=== PATIENT | female | born 1950 | race Caucasian/White ===

== ENCOUNTER 2018-03-09 18:38 | Emergency (ER) | payer MEDICARE, MEDICAID ==
[2018-03-09 18:49] VITALS: BMI 30.2
[2018-03-09 19:00] VITALS: RESP 18; TEMP 98
[2018-03-09] MEDS ORDERED: Sodium Chloride 0.9% 1,000 ML IV STA (19:47)
[2018-03-09 20:57] LABS: BASO # 0.03 K/mm3 (0.0-2.0); BASO % 0.4 % (0.0-3.0); EOS # 0.1 (0.0-0.7); EOS % 1.3 % (1.5-5.0); GRAN # 4.2 (1.4-6.5); GRAN % 62.9 % (50.0-68.0); HEMOGLOBIN 13.3 g/dL (12.0-16.0); LYMPH % 29.7 % (22.0-35.0); MEAN CELL VOLUME 86.8 fl (80.0-105.0); MEAN CORPUSCULAR HEMOGLOBIN 29.3 pg (25.0-35.0); MEAN CORPUSCULAR HGB CONC 33.8 g/dl (31.0-37.0); MEAN PLATELET VOLUME 10.3 fl (7.0-11.0); MONO # 0.4 (0.1-0.6); MONO % 5.7 % (1.0-6.0); RBC 4.54 10^6/uL (3.5-6.1); RED CELL DISTRIBUTION WIDTH 12.6 % (11.5-14.5); WHITE BLOOD COUNT 6.7 10^3/ul (4.5-11.0)
[2018-03-09 21:07] LABS: ALB/GLOB RATIO 1.2 (1.1-1.8); ALT/SGPT 90 U/L (7-56); AST/SGOT 136 U/L (14-36); BLOOD UREA NITROGEN 23 mg/dL (7-21); CALCIUM 8.9 mg/dL (8.4-10.5); GFR AFRICAN-AMERICAN > 60; GFR NON-AFRICAN AMERICAN 55; LIPASE 328 U/L (23-300)
[2018-03-09] MEDS ORDERED: Iohexol 350 MG/100 ML VIAL ONE (21:11)
--- NOTE | 2018-03-09 21:19 | ED PDOC ---
Arrival/HPI - General Chief Complaint: Abdominal Pain Time Seen by Provider: 03/09/18 19:47 Historian: Patient - History of Present Illness Narrative History of Present Illness (Text): 03/09/18 20:37 68 year old female presents to the Emergency department complaining of diffuse abdominal pain and multiple episodes of vomiting since 16:00 today. Patient states symptoms began after eating chicken. Patient denies any fever, chills, chest pain, shortness of breath, diarrhea, urinary symptoms, vaginal bleeding, vaginal discharge, back pain, neck pain, headache, dizziness, or any other complaints. Time/Duration: 4-6 hours Symptom Onset: Sudden Symptom Course: Unchanged Context: Home Past Medical History - Provider Review Nursing Documentation Reviewed: Yes - Reproductive Menopause: Yes - Cardiac Hx Cardiac Disorders: Yes Hx Hypertension: Yes - Psychiatric Hx Psychophysiologic Disorder: No Hx Substance Use: No Family/Social History - Physician Review Nursing Documentation Reviewed: Yes Family/Social History: Unknown Family HX Smoking Status: Never Smoked Hx Alcohol Use: No Hx Substance Use: No Allergies/Home Meds Allergies/Adverse Reactions: Allergies No Known Allergies Allergy (Verified 03/09/18 18:49) Home Medications: Home Meds Medication Instructions Recorded Confirmed Allopurinol [Zyloprim] 100 mg PO DAILY 03/09/18 03/09/18 Aspirin [Aspirin Chewable] 81 mg PO DAILY 03/09/18 03/09/18 Celecoxib [CeleBREX] 100 mg PO DAILY 03/09/18 03/09/18 Valsartan/Hydrochlorothiazide 1 each PO DAILY 03/09/18 03/09/18 [Diovan Hct 160-25 mg Tablet] Review of Systems - Physician Review All systems were reviewed & negative as marked: Yes - Review of Systems Constitutional: absent: Fevers, Night Sweats Respiratory: absent: SOB Cardiovascular: absent: Chest Pain Gastrointestinal: Abdominal Pain, Nausea, Vomiting. absent: Diarrhea Genitourinary Female: absent: Dysuria, Vaginal Bleeding, Vaginal Discharge Musculoskeletal: absent: Back Pain, Neck Pain Neurological: absent: Headache, Dizziness Physical Exam Vital Signs Reviewed: Yes Vital Signs Temp Pulse Resp BP Pulse Ox 03/09/18 18:53 98 F 62 18 155/68 H 98 Temperature: Afebrile Blood Pressure: Hypertensive Pulse: Regular Respiratory Rate: Normal Appearance: Positive for: Well-Appearing, Non-Toxic, Comfortable Pain Distress: None Mental Status: Positive for: Alert and Oriented X 3 - Systems Exam Head: Present: Atraumatic, Normocephalic Pupils: Present: PERRL Extroacular Muscles: Present: EOMI Conjunctiva: Present: Normal Mouth: Present: Moist Mucous Membranes Neck: Present: Normal Range of Motion Respiratory/Chest: Present: Clear to Auscultation, Good Air Exchange. No: Respiratory Distress, Accessory Muscle Use Cardiovascular: Present: Regular Rate and Rhythm, Normal S1, S2. No: Murmurs Abdomen: Present: Tenderness (diffuse), Normal Bowel Sounds. No: Distention, Peritoneal Signs Back: Present: Normal Inspection Upper Extremity: Present: Normal Inspection. No: Cyanosis, Edema Lower Extremity: Present: Normal Inspection. No: Edema Neurological: Present: GCS=15, CN II-XII Intact, Speech Normal Skin: Present: Warm, Dry, Normal Color. No: Rashes Psychiatric: Present: Alert, Oriented x 3, Normal Insight, Normal Concentration Medical Decision Making ED Course and Treatment: 03/09/18 21:21 Impression: 68 year old female presents to the Emergency department complaining of abdominal pain and vomiting. Plan: -- CT scan of the abdomen and pelvis -- EKG -- Urine culture -- Urinalysis -- Labs -- Pepcid, Zofran, Sodium Chloride IV fluids -- Reassess and disposition Progress Notes: - Lab Interpretations Lab Results: 03/09/18 19:10 03/09/18 19:10 Lab Results 03/09/18 19:10: Sodium 144, Potassium 4.3, Chloride 104, Carbon Dioxide 29, Anion Gap 16, BUN 23 H, Creatinine 1.0, Est GFR ( Amer) > 60, Est GFR ( Non-Af Amer) 55, Random Glucose 141 H, Calcium 8.9, Magnesium 2.0, Total Bilirubin 0.4, AST 136 H, ALT 90 H, Alkaline Phosphatase 109, Total Protein 7.3 , Albumin 4.0, Globulin 3.3, Albumin/Globulin Ratio 1.2, Lipase 328 H 03/09/18 19:10: WBC 6.7, RBC 4.54, Hgb 13.3, Hct 39.4, MCV 86.8, MCH 29.3, MCHC 33.8, RDW 12.6, Plt Count 271, MPV 10.3, Gran % 62.9, Lymph % (Auto) 29.7, [place] % (Auto) 5.7, Eos % (Auto) 1.3 L, Baso % (Auto) 0.4, Gran # 4.20, Lymph # (Auto ) 2.0, [place] # (Auto) 0.4, Eos # (Auto) 0.1, Baso # (Auto) 0.03 - RAD Interpretation Radiology Orders: 03/09/18 20:39 ABD & PELVIS IV CONTRAST ONLY [CT] Stat - Medication Orders Current Medication Orders: Sodium Chloride (Sodium Chloride 0.9%) 1,000 mls @ 125 mls/hr IV .Q8H STA Stop: 03/10/18 03:46 Last Admin: 03/09/18 20:51 Dose: 125 mls/hr eMAR Start Stop Document 03/09/18 20:51 LA (Rec: 03/09/18 20:51 LA [id number]) Intravenous Solution Start Date 03/09/18 Start Time 20:51 Discontinued Medications Famotidine (Pepcid) 20 mg IVP STAT STA Stop: 03/09/18 19:48 Last Admin: 03/09/18 20:50 Dose: 20 mg IVP Administration Document 03/09/18 20:50 LA (Rec: 03/09/18 20:51 LA [id number]) Charges for Administration # of IVP Administrations 1 Ondansetron HCl (Zofran Inj) 4 mg IVP STAT STA Stop: 03/09/18 19:48 Last Admin: 03/09/18 20:51 Dose: 4 mg IVP Administration Document 03/09/18 20:51 LA (Rec: 03/09/18 20:51 LA [id number]) Charges for Administration # of IVP Administrations 1 - Scribe Statement The provider has reviewed the documentation as recorded by the Danny Pandey Provider Scribe Attestation: All medical record entries made by the Scribe were at my direction and personally dictated by me. I have reviewed the chart and agree that the record accurately reflects my personal performance of the history, physical exam, medical decision making, and the department course for this patient. I have also personally directed, reviewed, and agree with the discharge instructions and disposition. Disposition/Present on Arrival - Present on Arrival Any Indicators Present on Arrival: No History of DVT/PE: No History of Uncontrolled Diabetes: No Urinary Catheter: No History of Decub. Ulcer: No History Surgical Site Infection Following: None - Disposition Have Diagnosis and Disposition been Completed?: Yes Diagnosis: Gastritis Disposition: HOME/ ROUTINE Disposition Time: 22:40 Patient Problems: Current Active Problems Problem Status Onset Gastritis Acute Condition: GOOD Discharge Instructions (ExitCare): Gastritis (DC) Additional Instructions: Thank you for letting us take care of you today. The emergency medical care you received today was directed at your acute symptoms. If you were prescribed any medication, please fill it and take as directed. It may take several days for your symptoms to resolve. Return to the Emergency Department if your symptoms worsen, do not improve, or if you have any other problems. Please contact your doctor or call one of the physicians/clinics you have been referred to that are listed on the Patient Visit Information form that is included in your discharge packet. Bring any paperwork you were given at discharge with you along with any medications you are taking to your follow up visit. Our treatment cannot replace ongoing medical care by a primary care provider (PCP) outside of the emergency department. Thank you for allowing the [facility] team to be part of your care today. Follow up with your doctor in 2-3 days for re-evaluation and further management. Prescriptions: Ranitidine HCl [Zantac] 150 mg PO BID #14 tablet Referrals: Jesse Young MD [Primary Care Provider] - Follow up with primary Forms: [employer] ([place])
--- NOTE | 2018-03-09 22:26 | CT ---
EXAM: CT Abdomen and Pelvis With Intravenous Contrast CLINICAL HISTORY: 68 years old, female; Pain; Abdominal pain; Localized; Lower; Additional info: Lower abdominal pain TECHNIQUE: Axial computed tomography images of the abdomen and pelvis with intravenous contrast. All CT scans at this facility use one or more dose reduction techniques, viz.: automated exposure control; ma/kV adjustment per patient size (including targeted exams where dose is matched to indication; i.e. head); or iterative reconstruction technique. Coronal and sagittal reformatted images were created and reviewed. CONTRAST: 92 mL of OMNI 350 administered intravenously. COMPARISON: No relevant prior studies available. FINDINGS: Limitations: Motion artifact - mild. Lung bases: Minimal atelectasis/scarring. Mediastinum: Small hiatal hernia. ABDOMEN: Liver: Fatty infiltration. Gallbladder and bile ducts: Cholecystectomy. Mild prominence of common bile duct. 0.2 x 0.2 x 0.2 cm calcification within distal common bile duct at level of ampulla. Pancreas: No ductal dilation. No mass. Spleen: No splenomegaly. Adrenals: No mass. Kidneys and ureters: Too small to characterize lesion within RIGHT kidney. No hydronephrosis. Stomach and bowel: Segmental areas of mild mural thickening vs underdistention of large bowel. No associated inflammatory stranding. No obstruction. PELVIS: Appendix: Normal caliber. No inflammation. Bladder: Unremarkable. Reproductive: Unremarkable as visualized. ABDOMEN and PELVIS: Intraperitoneal space: No significant fluid collection. No free air. Bones/joints: Degenerative changes of spine. No acute fracture. Soft tissues: Unremarkable. Vasculature: Unremarkable. No aneurysm. Lymph nodes: Minimal haziness within central mesentery with several associated subcentimeter lymph nodes. Borderline enlarged short axis lymph node within michelle hepatis. IMPRESSION: 1. Choledocholithiasis. 2. Mild colitis versus underdistention. Clinical correlation is needed. 3. Felicita mesentery, nonspecific but may represent mesenteric panniculitis, age indeterminate. 4. Incidental/non-acute findings are described above.
[2018-03-10 02:54] VITALS: PULSE 60; O2SAT 99
[2018-03-10 02:57] VITALS: BP 145/62
--- NOTE | 2018-03-10 09:35 | CARD ---
APPROVED REPORT EKG Measurement Heart [id number] <Conclusion> Normal sinus rhythm Normal ECG
== END 2018-03-09 23:00 | disposition home or self-care (01) ==
LOC: ED 18:38
DX: K29.70 Gastritis, unspecified, without bleeding (principal)
CPT/HCPCS: 74177; 80053; 83690; 83735; 85025; 93005; 96374; 96375; 99283; J2405; J7040; Q9967